=== PATIENT | male | born 1960 | race Caucasian/White ===

== ENCOUNTER → 2025-04-25 | Outpatient (CLI) | payer OTHER, SELFPAY ==
[~2025-04-25] MED LIST: AMLO-325 PO; FEBU40TA4 PO; FERR325T3 PO; FOLI1TAB11 PO; FURO40TA2 PO; LEVO100T5 PO; OMEP40CA4 PO; REPA420I2 SC; SPIR50TA4 PO
== END ==
LOC: M IRPRO 13:25
PROVIDERS: ATTEND Internal Medicine Gastroenterology
DX: R18.8 Other ascites (principal); K74.60 Unspecified cirrhosis of liver

== ENCOUNTER 2025-08-12 12:22 | Emergency (ER) | payer OTHER ==
[~2025-08-12 12:22] MED LIST changes: -AMLO1TAB24 PO; -LEVO112T2 PO; -PANT40TA29 PO; -SPIR100T3 PO; -VITA100T28 PO
[2025-08-12 13:30] LABS: BASO # 0.1 10^3/uL (0.0-0.2); BASO % 0.7 % (0.0-1.0); EOS # 0.1 10^3/uL (0.0-0.5); EOS % 1.3 % (0.0-3.0); LYMPH # 0.4 10^3/uL (1.5-5.0); LYMPH % 5.0 % (24.0-44.0); MONO # 0.6 10^3/uL (0.0-0.8); MONO % 9.2 % (2.0-8.0); NEUTROPHILS # 5.8 10^3/uL (1.5-8.5); NEUTROPHILS % 82.9 % (36.0-66.0); PLATELET COUNT, AUTOMATED 106 10^3/uL (150-450)
[2025-08-12 13:50] LABS: ALT/SGPT 36.0 U/L (7.0-40); AST/SGOT 123.0 U/L (<34); CALCIUM LEVEL 7.8 MG/DL (8.3-10.6); CARBON DIOXIDE LEVEL 26.0 MMOL/L (20-31); CHLORIDE LEVEL 93.0 MMOL/L (98-107); CREATININE FOR GFR 2.23 MG/DL (0.70-1.30); GLOMERULAR FILTRATION RATE 31.7 (>49); POTASSIUM SERUM 4.3 MMOL/L (3.5-5.1); SODIUM LEVEL 130.0 MMOL/L (136-145)
[2025-08-12 16:14] LABS: INR 1.24
[2025-08-12 17:30] LABS: MAGNESIUM LEVEL 2.5 MG/DL (1.8-2.4)
[2025-08-12 17:32] LABS: CPK CREATINE PHOSPHOKINASE 101.0 U/L (46-171)
[2025-08-12 17:34] LABS: OSMOLALITY SERUM 335.0 MOSM/KG (280-301)
[2025-08-12] MEDS: NS (Normal Saline) 0.9% 1,000 ML IV SCH (18:15)
[2025-08-13 00:05] LABS: POTASSIUM RANDOM URINE 22.0 MMOL/L
[2025-08-13 00:10] LABS: TOTAL PROTEIN,RANDOM URINE 16.2 MG/DL (0.0-14.0)
[2025-08-13 00:23] LABS: SODIUM,RANDOM URINE < 10 MMOL/L
[2025-08-13] MEDS ORDERED: AMLO1TAB24 PO (02:19)
[2025-08-13] MEDS ORDERED: PANT40TA29 PO (02:19)
[2025-08-13] MEDS ORDERED: SPIR100T3 PO (02:19)
[2025-08-13] MEDS ORDERED: LEVO112T2 PO (02:19)
[2025-08-13] MEDS ORDERED: VITA100T28 PO (02:21)
[2025-08-13] MEDS ORDERED: HOME MED LIST COMPLETE! XX SCH (02:25)
[2025-08-13 08:19] VITALS: BP 134/60; TEMP 98.5; O2SAT 98
== END 2025-08-13 08:24 | disposition short-term general hospital (02) ==
LOC: M ED 12:22
DX: K74.60 Unspecified cirrhosis of liver (principal); N17.9 Acute kidney failure, unspecified; K57.30 Diverticulosis of large intestine without perforation or abscess without bleeding; I10 Essential (primary) hypertension; E03.9 Hypothyroidism, unspecified; E78.5 Hyperlipidemia, unspecified; Z88.8 Allergy status to other drugs, medicaments and biological substances; Z79.899 Other long term (current) drug therapy

== ENCOUNTER → 2025-08-12 | Outpatient (CLI) | payer OTHER, SELFPAY ==
[~2025-08-12] MED LIST changes: +AMLO1TAB24 PO; +LEVO112T2 PO; +PANT40TA29 PO; +SPIR100T3 PO; +VITA100T28 PO
[2025-08-12 09:25] VITALS: TEMP 97.6
[2025-08-12 11:08] VITALS: BP 128/60; O2SAT 99
[2025-08-12 11:14] VITALS: BP 128/60; O2SAT 98
[2025-08-12 11:42] LABS: ASCITES FL COLOR YELLOW (COLORLESS); SOURCE, BODY FLUID ASCITES
[2025-08-12 11:43] LABS: APPEARANCE, BODY FLUID HAZY (CLEAR)
== END ==
LOC: M IRPRO 09:00
PROVIDERS: ATTEND Internal Medicine Gastroenterology
DX: R18.8 Other ascites (principal); K74.60 Unspecified cirrhosis of liver
CPT/HCPCS: 49083; 87070; 87205; 88108; 88305; 88313; 89051; 96374; P9047